=== PATIENT | male | born 1960 | race Caucasian/White ===

== ENCOUNTER 2016-08-13 18:38 | Inpatient (IN) | payer OTHER ==
[~2016-08-13] VITALS: Ht 172.7 cm; Wt 145.1 kg
[~2016-08-13 18:38] MED LIST: ALLEGRA 180MG180 MG PO; BACTRIM DS 8001 TAB PO; BACTROBAN 22GM22 GM TP; CLEOCIN PO; COLACE 100100 MG/CAP PO; EXALGO16 MG PO; FLEXERIL10 MG PO; GABAPENTIN; GLUCOPHAGE500 MG/TAB PO; IRON65 MG PO; KADIAN50 MG PO; LAMISIL250 MG PO; LASIX 20MG TABL20 MG PO; LISINOPRIL; LORTAB 5/500 501 TAB; MORPHINE 1515 MG/TAB PO; MOTRIN 800800 MG/TAB PO; MS CONTIN30 MG PO; MUCINEX1200 MG PO; MULTIPLE VITAMI1 TAB PO; MVI; NAPROSYN500 MG PO; NATURAL IRON65 MG PO; NEURONTIN300 MG/CAP PO; NEURONTIN600 MG/TAB PO; ONGLYZA5 MG PO; PERCOCET 325 MG1 TAB PO; PERCOCET 650 MG1 TAB PO; PRILOSEC 20MG20 MG PO; PRINIVIL40 MG PO; SYNTHROID0.1 MG/TAB PO; TESSALON PERLE200 MG PO; TRAMADOL; ZOCOR 20MG20 MG PO; ZOCOR5 MG; [UNRECOGNIZED DRUG - OTHER]
[2016-08-13 20:26] VITALS: BP 180/90; PULSE 112; TEMP 98.5
[2016-08-14 16:50] VITALS: BP 160/85; PULSE 114; TEMP 98.3
[2016-08-14 17:24] VITALS: BP 160/85; PULSE 114; TEMP 97.3
[2016-08-15 06:45] VITALS: BP 176/91; PULSE 97; TEMP 96.9
[2016-08-15 16:34] VITALS: BP 159/94; PULSE 111; TEMP 96.5
[2016-08-16 05:04] VITALS: BP 154/81; PULSE 91; TEMP 97.8
[2016-08-16 16:29] VITALS: BP 144/77; PULSE 103; TEMP 97.6
[2016-08-17 05:06] VITALS: BP 171/80; PULSE 103; PULSE 13; TEMP 98.2
[2016-08-17 16:59] VITALS: BP 140/54; PULSE 103; TEMP 97.2
[2016-08-18 04:12] VITALS: BP 140/58; PULSE 90; TEMP 97.7
[2016-08-18 16:10] VITALS: BP 137/71; PULSE 100; TEMP 97.2
[2016-08-19 03:35] VITALS: BP 152/80; PULSE 97; TEMP 98
[2016-08-19 16:04] VITALS: BP 130/75; PULSE 95; TEMP 97.1
[2016-08-20 05:50] VITALS: BP 150/77; PULSE 91; TEMP 97.7
[2016-08-20 16:27] VITALS: BP 121/65; PULSE 103; TEMP 96.9
[2016-08-21 05:47] VITALS: BP 153/78; PULSE 92; TEMP 96.8
[2016-08-21 16:13] VITALS: BP 143/76; PULSE 94; TEMP 96.8
[2016-08-22 06:30] VITALS: BP 141/74; PULSE 92; TEMP 98.2
[2016-08-22 15:47] VITALS: BP 137/77; PULSE 93; TEMP 98.5
[2016-08-23 06:30] VITALS: BP 152/77; PULSE 102; PULSE 12; TEMP 97.6
[2016-08-23] MEDS ORDERED: NEURONTIN600 MG/TAB PO (12:23)
[2016-08-23] MEDS ORDERED: PERCOCET 325 MG1 TAB PO (12:24)
[2016-08-23] MEDS ORDERED: EXALGO32 PO (13:53)
[2016-08-23] MEDS ORDERED: TRULICITY1.5 MG/0.5 SQ (13:53)
[2016-08-23] MEDS ORDERED: GLUCOPHAGE500 MG/TAB PO (13:54)
== END 2016-08-23 14:54 | disposition home health service (06) | DRG 948 ==
DX: R53.81 Other malaise (principal); Z68.42 Body mass index [BMI] 45.0-49.9, adult; M51.37 Other intervertebral disc degeneration, lumbosacral region; I10 Essential (primary) hypertension; E11.9 Type 2 diabetes mellitus without complications; E66.9 Obesity, unspecified
CPT/HCPCS: 99222-AI; 99232-AI; 99239; J1650; J1815

== ENCOUNTER → 2017-11-07 | Outpatient (CLI) | payer OTHER ==
[~2017-11-07] MED LIST changes: +EXALGO32 PO; +TRULICITY1.5 MG/0.5 SQ
== END ==
LOC: SUN.DIA 10:00
DX: E11.9 Type 2 diabetes mellitus without complications (principal); E78.5 Hyperlipidemia, unspecified; E11.40 Type 2 diabetes mellitus with diabetic neuropathy, unspecified; E66.9 Obesity, unspecified; Z68.42 Body mass index [BMI] 45.0-49.9, adult; Z71.3 Dietary counseling and surveillance
CPT/HCPCS: G0108

== ENCOUNTER → 2017-12-14 | Outpatient (CLI) | payer OTHER | LOC: SUN.DIA 11-30 16:11 | DX: E11.40 Type 2 diabetes mellitus with diabetic neuropathy, unspecified (principal); E78.5 Hyperlipidemia, unspecified; E66.9 Obesity, unspecified | CPT/HCPCS: G0108 ==

== ENCOUNTER → 2018-02-01 | Outpatient (CLI) | payer OTHER | LOC: SUN.DIA 14:37 | DX: E11.40 Type 2 diabetes mellitus with diabetic neuropathy, unspecified (principal); E78.5 Hyperlipidemia, unspecified; E66.9 Obesity, unspecified | CPT/HCPCS: G0108 ==

== ENCOUNTER 2019-04-13 06:27 | Day surgery (SDC) | payer OTHER ==
[~2019-04-13] VITALS: Ht 167.6 cm; Wt 140.9 kg
[2019-04-13] VITALS (7 sets, daily range): BP systolic 135–149; BP diastolic 82–92; PULSE 77–98; TEMP 97–97.7
[~2019-04-13 06:27] MED LIST changes: +BASAGLAR K100 UNIT/1 SQ; +HYGROTON 2525 MG/TAB PO; +MULTIPLE VITAMI1 TA5 PO; -MULTIPLE VITAMI1 TAB PO; +NORVASC 10MG10 MG PO
[2019-04-13] MEDS ORDERED: CBD OIL (07:31)
--- NOTE | 2019-04-13 11:03 | NUR ---
PT RETURNED FROM ENDO PROCEDURE ROOM INTO BAY# 5. PT ALERT AND ORIENTATED. LUNGS CLEAR, HRR, BOWEL SOUNDS PRESENT. IV PATENT TO RIGHT HAND. PT DENIES PAIN OR NAUSEA AT THIS TIME. REQUESTS GRAPE JUICE AND CHOCOLATE PUDDING. CALL LIGHT IN REACH, WILL CONT TO MONITOR PROGRESS.
--- NOTE | 2019-04-13 11:09 | NUR ---
PT TOLERATING FOOD AND FLUIDS, CALLED FOR RIDE HOME. DENIES PAIN OR DISCOMFORT, DENIES NAUSEA. DRIFTS ON AND OFF TO SLEEP, WILL CONT TO MONITOR, CALL LIGHT IN REACH.
--- NOTE | 2019-04-13 11:12 | NUR ---
IV REMOVED FROM RIGHT HAND WITHOUT DIFFICULTY, DISCHARGE INSTRUCTIONS GIVEN, PT VOICES UNDERSTANDING. WAITONG FOR SON-IN-LAW TO ARRIVE.
--- NOTE | 2019-04-13 11:14 | NUR ---
PT ALERT AND ORINTATED, DENIES PAIN OR NAUSEA. BELONGINGS GATHERED AND PT WAS TAKEN TO PATIENT ENTRANCE TO MEET HIS SON-IN-LAW FOR A RIDE HOME. PT DENIES QUESTIONS. PT DISCHARGED INTO SON-IN-LAW'S CAR. SON-IN-LAW DRIVING.
== END 2019-04-13 10:00 | disposition home or self-care (01) ==
LOC: SDCO 06:27
DX: K31.7 Polyp of stomach and duodenum (principal); K21.9 Gastro-esophageal reflux disease without esophagitis; K44.9 Diaphragmatic hernia without obstruction or gangrene; I10 Essential (primary) hypertension; E78.00 Pure hypercholesterolemia, unspecified; G89.29 Other chronic pain; M54.9 Dorsalgia, unspecified; M46.96 Unspecified inflammatory spondylopathy, lumbar region; E03.9 Hypothyroidism, unspecified; E11.42 Type 2 diabetes mellitus with diabetic polyneuropathy; E66.01 Morbid (severe) obesity due to excess calories; Z68.43 Body mass index [BMI] 50.0-59.9, adult; Z79.4 Long term (current) use of insulin; Z79.84 Long term (current) use of oral hypoglycemic drugs; Z87.891 Personal history of nicotine dependence; Z88.1 Allergy status to other antibiotic agents; Z88.8 Allergy status to other drugs, medicaments and biological substances
CPT/HCPCS: J2250; J2405; J3010

== ENCOUNTER 2019-04-19 11:18 | Inpatient (IN) | payer OTHER ==
[~2019-04-19] VITALS: Ht 167.6 cm; Wt 142.5 kg
[~2019-04-19 11:18] MED LIST changes: +CBD OIL
[2019-05-09] VITALS (339 sets, daily range): BP systolic 135–174; BP diastolic 70–104; PULSE 89–109; TEMP 97.6–99.2; O2SAT 90–97
[2019-05-09] MEDS ORDERED: NEURONTIN800 MG/TAB PO (07:37)
--- NOTE | 2019-05-09 13:17 | NUR ---
Arrives to ICU 6 via bed from PACU with RN x2. Awakens to name called. Dressings to abd x5, CDI. CHIDI and garcía cath in place. Call light in hand. Denies needs.
--- NOTE | 2019-05-09 17:46 | NUR ---
Dr. Rodriguez notified of BP trend since admit. PRN orders recieved.
--- NOTE | 2019-05-09 19:50 | NUR ---
Assessment complete; patient resting in bed; mildly drowsy but arouses easily and responds appropriately to questions. Complaining of upper dull abdominal pain. Reminded to use SALES AND MARKETING PROFESSIONAL when having pain. Also demonstrated splinting with a pillow as patient reported coughing increases pain. Reminded to deep breath at least ten times an hour while awake to help decrease risk of developing pneumonia.
[2019-05-10] VITALS (403 sets, daily range): BP systolic 127–167; BP diastolic 66–91; PULSE 88–110; TEMP 97.9–99.4; O2SAT 94–100
--- NOTE | 2019-05-10 01:30 | NUR ---
Patient reporting abdominal pain similar to which he complained of earlier in the shift. Also reporting a headache. Reminded to use CREDIT AND LOAN COLLECTIONS SUPERVISOR button as needed. Assisted to reposition and boosted up in bed. Lap sites clean dry and intact, and bowel sounds audible in all quadrants. Will continue to monitor.
[2019-05-10 07:22] LABS: BASO % 0.2 % (0.0-2.0); EOS % 0.2 % (0-4.0); GRAN # 11.3 (1.4-6.5); GRAN % 82.6 % (42.2-75.2); HEMOGLOBIN 14.9 g/dl (13.5-18.0); LYMPH # 1.1 (1.2-3.4); LYMPH % 7.7 % (20.0-51.0); MEAN CELL VOLUME 87 fl (80.0-100.0); MEAN CORPUSCULAR HEMOGLOBIN 29 pg (27.0-31.0); MEAN CORPUSCULAR HGB CONC 34 g/dl (33.0-37.0); MEAN PLATELET VOLUME 10.3 fl (7.4-10.4); MONO # 1.2 (0.1-0.6); MONO % 8.9 % (1.7-9.3); PLATELET COUNT 223 K/mm3 (130-400); RED BLOOD COUNT 5.08 M/mm3 (4.20-5.60); REDCELL DISTRIBUTION WIDTH-CV 14.1 % (11.5-14.5)
[2019-05-10 07:24] LABS: CALCIUM 8.9 mg/dL (8.4-10.2); CREATININE, serum 0.57 (0.66-1.25)
[2019-05-10 07:30] LABS: POTASSIUM 2.9 mmol/L (3.4-5.0)
--- NOTE | 2019-05-10 07:30 | NUR ---
Report received from Quyen FONTANEZ and care resumed. Pt helped up to chair with assist of 1. Tolerated well. Will continue to follow.
--- NOTE | 2019-05-10 11:30 | NUR ---
Dr Rodriguez in to see pt at this time. Will plan to transfer to floor.
--- NOTE | 2019-05-10 14:21 | NUR ---
Report called to Brittanie FONTANEZ on surgical floor. Pt taken by wheelchair with chart and belongings on tele to room 321-2.
--- NOTE | 2019-05-10 21:00 | NUR ---
Shift assessment complete. Patient in bed, awake. Ambulated to BR with standby assist. Had BM. States pain 5/10, LOCKSTITCH MACHINE OPERATOR somewhat effective. No additional pain medication needed per pt. CHIDI drain emptied. Denies further needs at this time. Will continue to monitor.
[2019-05-11] VITALS (8 sets, daily range): BP systolic 107–147; BP diastolic 64–85; PULSE 88–109; TEMP 97.4–98.4
--- NOTE | 2019-05-11 05:30 | NUR ---
Patient in bed, sleeping. Wakens to name being called. States, pain 09/25. Self-administered PAPER CONSERVATOR dose. Specimen collected from CHIDI and sent to lab. VS stable. Denies further needs at this time. Will continue to monitor.
--- NOTE | 2019-05-11 09:30 | NUR ---
Patient alert and oriented, answers questions appropriately. See assessment. Abdomen soft, non tender, non distended. Bowel sounds active x4 quads. +Flatus. +Bowel movement. Lap sites to abdomen with edges well approximated, no redness or drainage noted. CHIDI to LLQ compressed, serosanguinous drainage noted. ENGINEERING SURVEYOR Dilaudid infusing in IV in left wrist. No c/o pain or discomfort.
[2019-05-11 09:36] LABS: BASO % 0.4 % (0.0-2.0); CALCIUM 8.9 mg/dL (8.4-10.2); CREATININE, serum 0.58 (0.66-1.25); EOS # 0.1 (0.0-0.7); EOS % 0.9 % (0-4.0); GRAN # 8.1 (1.4-6.5); GRAN % 76.1 % (42.2-75.2); HEMOGLOBIN 14.5 g/dl (13.5-18.0); LYMPH # 1.3 (1.2-3.4); LYMPH % 12.4 % (20.0-51.0); MEAN CELL VOLUME 88 fl (80.0-100.0); MEAN CORPUSCULAR HEMOGLOBIN 30 pg (27.0-31.0); MEAN CORPUSCULAR HGB CONC 34 g/dl (33.0-37.0); MEAN PLATELET VOLUME 9.9 fl (7.4-10.4); MONO % 9.6 % (1.7-9.3); PLATELET COUNT 213 K/mm3 (130-400); POTASSIUM 3.3 mmol/L (3.4-5.0); RED BLOOD COUNT 4.91 M/mm3 (4.20-5.60); REDCELL DISTRIBUTION WIDTH-CV 14.1 % (11.5-14.5)
--- NOTE | 2019-05-11 13:28 | NUR ---
Interior Design Project Manager met with patient to discuss discharge planning. Patient lives alone in a [place] A mobile home in [place]. Patient sees Dr. Barnard for primary care and obtains medications from [facility] pharmacy. Patient reports he has a neuro stimulator at home. Patient also reports independence with ADLS. Patient did not have DPOA-HC set up but was interested in doing so at this time. SW assisted patient in completing the form. Patient designates his daughters, Elijah and Annmarie. ELAINE and RNBrittanie provided witness signature. SW provided original and copies to patient then placed a copy in chart. Patient plans to return home upon discharge. SW to continue to follow as needed.
--- NOTE | 2019-05-12 02:06 | NUR ---
Patient doing well tonight. c/o moderate back pain, and states he is having very little abd pain. laps x5 cdi and open to air. llq karen drain cdi and open to air, draining bloody drainage. both iv to L arm flushed and patent. has not needed insulin tonight, took other scheduled medications without issue. ambulated in halls x2 independently. no further needs at this time. will continue to monitor.
[2019-05-12 03:54] VITALS: BP 128/73; PULSE 80; TEMP 97.5
[2019-05-12 07:53] VITALS: BP 99/66; PULSE 103; TEMP 97.4
--- NOTE | 2019-05-12 08:00 | NUR ---
Patient resting in bed eating breakfast at this time. Patient is alert and oriented, answers questions appropriately. Patient denies pain at this time, does request set up assistance with showering after breakfast, instructed patient to inform staff when he was ready. Patient denies further needs at this time, call light within reach.
[2019-05-12 09:31] LABS: BASO # 0.1 (0.0-0.2); BASO % 0.5 % (0.0-2.0); EOS # 0.3 (0.0-0.7); EOS % 2.4 % (0-4.0); GRAN # 7.8 (1.4-6.5); GRAN % 75.1 % (42.2-75.2); HEMATOCRIT 42.4 % (42.0-52.0); LYMPH # 1.4 (1.2-3.4); LYMPH % 13.8 % (20.0-51.0); MEAN CELL VOLUME 88 fl (80.0-100.0); MEAN CORPUSCULAR HEMOGLOBIN 29 pg (27.0-31.0); MEAN CORPUSCULAR HGB CONC 33 g/dl (33.0-37.0); MEAN PLATELET VOLUME 10.4 fl (7.4-10.4); MONO # 0.8 (0.1-0.6); MONO % 7.7 % (1.7-9.3); PLATELET COUNT 215 K/mm3 (130-400); RED BLOOD COUNT 4.81 M/mm3 (4.20-5.60); REDCELL DISTRIBUTION WIDTH-CV 13.9 % (11.5-14.5)
[2019-05-12 09:44] LABS: CALCIUM 9.1 mg/dL (8.4-10.2); CREATININE, serum 0.69 (0.66-1.25); POTASSIUM 3.4 mmol/L (3.4-5.0)
--- NOTE | 2019-05-12 11:45 | NUR ---
Discharge teaching completed. Discussed discharge instructions and the importance of making and keeping follow up appointments. INT removed, catheter intact, hemostasis achieved. Patient denies questions or concerns at this time, patient escorted to visitor entrance, where he entered a private vehicle.
== END 2019-05-12 11:45 | disposition home or self-care (01) | DRG 621 ==
LOC: INPTSU 05-09 06:37 → SURG 05-09 10:15 → ICU 05-09 13:31 → SURG 05-10 14:39
PROVIDERS: ADMIT Surgery
PROC: 8E0W4CZ Robotic Assisted Procedure of Trunk Region, Percutaneous Endoscopic Approach (ICD-10-PCS; 2019-05-09)
PROC: 0D164ZA Bypass Stomach to Jejunum, Percutaneous Endoscopic Approach (ICD-10-PCS; principal; 2019-05-09 10:15)
DX: E66.01 Morbid (severe) obesity due to excess calories (principal); Z68.43 Body mass index [BMI] 50.0-59.9, adult; G89.29 Other chronic pain; K31.7 Polyp of stomach and duodenum; K21.9 Gastro-esophageal reflux disease without esophagitis; I10 Essential (primary) hypertension; E78.00 Pure hypercholesterolemia, unspecified; E11.42 Type 2 diabetes mellitus with diabetic polyneuropathy; M54.9 Dorsalgia, unspecified; E03.9 Hypothyroidism, unspecified; Z90.49 Acquired absence of other specified parts of digestive tract; Z79.4 Long term (current) use of insulin; Z79.891 Long term (current) use of opiate analgesic; Z87.891 Personal history of nicotine dependence; Z88.1 Allergy status to other antibiotic agents; Z88.8 Allergy status to other drugs, medicaments and biological substances
CPT/HCPCS: A4314; C9113; J0330; J0360; J0690; J1100; J1170; J1650; J1815; J2405; J2704; J3010; J3480; J7030

== ENCOUNTER → 2019-10-08 | Outpatient (CLI) | payer OTHER ==
[~2019-10-08] VITALS: Ht 167.6 cm; Wt 114.5 kg
[~2019-10-08] MED LIST changes: +NEURONTIN800 MG/TAB PO
[2019-10-08 16:25] VITALS: BP 136/60; PULSE 104
== END ==
LOC: LIGHT 13:34
DX: E66.8 Other obesity (principal); Z68.41 Body mass index [BMI] 40.0-44.9, adult; Z98.84 Bariatric surgery status; E11.9 Type 2 diabetes mellitus without complications; Z79.4 Long term (current) use of insulin
CPT/HCPCS: G0463

== ENCOUNTER 2021-03-11 12:59 | Observation (INO) | payer BC ==
[~2021-03-11] VITALS: Ht 167.6 cm; Wt 103.3 kg
--- NOTE | 2021-03-11 13:24 | NUR ---
Patient to room 330 from the office. Ambulated to the room. A&Ox4. VSS. Nurse oriented the patient to location, room, and call light. Reports pain in back. No further needs expressed. Call light within reach
[2021-03-11 13:26] VITALS: BP 135/73; PULSE 95; TEMP 98.4
[2021-03-11] MEDS ORDERED: JANUVIA 100MG100 MG PO (13:48)
[2021-03-11 14:40] LABS: BASO # 0.1 K/mm3 (0.0-0.2); BASO % 0.5 % (0.0-2.0); EOS # 0.1 K/mm3 (0.0-0.7); EOS % 0.7 % (0-4.0); GRAN # 7.6 K/mm3 (1.4-6.5); GRAN % 77.1 % (42.2-75.2); HEMATOCRIT 44.2 % (42.0-52.0); HEMOGLOBIN 15.8 g/dl (13.5-18.0); LYMPH # 0.9 K/mm3 (1.2-3.4); LYMPH % 8.8 % (20.0-51.0); MEAN CELL VOLUME 87 fl (80.0-100.0); MEAN CORPUSCULAR HEMOGLOBIN 31 pg (27.0-31.0); MEAN CORPUSCULAR HGB CONC 36 g/dl (33.0-37.0); MEAN PLATELET VOLUME 10.3 fl (7.4-10.4); MONO # 1.2 K/mm3 (0.1-0.6); MONO % 12.4 % (1.7-9.3); PLATELET COUNT 244 K/mm3 (130-400); RED BLOOD COUNT 5.11 M/mm3 (4.20-5.60); REDCELL DISTRIBUTION WIDTH-CV 12.3 % (11.5-14.5)
[2021-03-11 15:02] LABS: ALBUMIN 3.4 gm/dL (3.4-4.8); BILIRUBIN,TOTAL 0.8 mg/dL (0.2-1.2); CALCIUM 9.5 mg/dL (8.4-10.2); CREATININE, serum 0.77 mg/dL (0.72-1.25)
[2021-03-11 15:04] LABS: POTASSIUM 2.5 mmol/L (3.5-4.5)
[2021-03-11 15:42] VITALS: BP 128/64; PULSE 91; TEMP 99
--- NOTE | 2021-03-11 16:00 | NUR ---
Patient back to room 330 from the OR. Procedure was canceled. VSS. IV CDI, fluids by gravity. Denies pain and discomfort. No further needs expressed from the patient. Call light within reach
--- NOTE | 2021-03-11 17:53 | NUR ---
Patient laying in bed watching TV. A&Ox4. VSS. IV CDI, fluids infusing. Complaints of pain in IV site r/t potassium infusing. Nurse informed the patient that potassium can burn and irritate the vein, running concurrently with NS. Denies abdominal pain. Telemetry on chest. Patient will be NPO after midnight and patient aware. No further needs expressed. Call light within reach
--- NOTE | 2021-03-11 17:56 | NUR ---
Patient has had complaints of nausea throughout the shift. Did vommit green emesis in the am, no other reports of emesis. Nausea medication given when requested. A&Ox3. VSS, BP hypertensive, doctor aware. Prior IV site infiltrated, new IV site started. Nurse encouraging PO intake with medication and to help with nausea. Daughter assisting with ordering dinner. Patient has been resting in bed most of the shift and reports being weak. No further needs expressed. Call light within reach
[2021-03-11 19:42] VITALS: BP 117/70; PULSE 88; TEMP 97.9
--- NOTE | 2021-03-11 20:00 | NUR ---
PT RESTING IN BED. HAVING CHRONIC BACK PAIN. SEE MAR FOR PAIN MED GIVEN. HAVE NEUROSTIMULATOR ALSO. K+ PROTOCOL CONTINUES. LT HAND IV SITE ALITTLE PAINFUL WITH POTASSIUM INFUSION. SITE CLEAR. NS INFUSING AT 75CC/HR.
--- NOTE | 2021-03-11 21:07 | NUR ---
NOTIFIED DR PAUL FOR IVF ORDER. SEE ORDER.
[2021-03-12] VITALS (7 sets, daily range): BP systolic 125–156; BP diastolic 65–86; PULSE 74–85; TEMP 97.9–98.6
[2021-03-12 03:14] LABS: HEMATOCRIT 43.4 % (42.0-52.0); HEMOGLOBIN 15.1 g/dl (13.5-18.0); MEAN CELL VOLUME 89 fl (80.0-100.0); MEAN CORPUSCULAR HEMOGLOBIN 31 pg (27.0-31.0); MEAN CORPUSCULAR HGB CONC 35 g/dl (33.0-37.0); MEAN PLATELET VOLUME 10.1 fl (7.4-10.4); PLATELET COUNT 221 K/mm3 (130-400); REDCELL DISTRIBUTION WIDTH-CV 12.4 % (11.5-14.5)
[2021-03-12 03:22] LABS: INR 1.2 (0.8-3.0); PROTHROMBIN TIME 13.8 SECONDS (9.7-12.8)
[2021-03-12 03:32] LABS: ALBUMIN 3.2 gm/dL (3.4-4.8); BILIRUBIN,TOTAL 0.7 mg/dL (0.2-1.2); CALCIUM 9.1 mg/dL (8.4-10.2); CREATININE, serum 0.7 mg/dL (0.72-1.25); TOTAL PROTEIN 6.6 gm/dL (6.2-8.1)
[2021-03-12 03:37] LABS: POTASSIUM 2.9 mmol/L (3.5-4.5)
--- NOTE | 2021-03-12 03:46 | NUR ---
DR PAUL NOTIFIED OF CURRENT K+ LEVEL. SEE ORDERS.
--- NOTE | 2021-03-12 04:20 | NUR ---
#1 BAG K+ 10mEQ IV STARTED PER PROTOCOL.
--- NOTE | 2021-03-12 05:39 | NUR ---
HAS BEEN NPO EXCEPT FOR SMALL SIPS WITH PERCOCET AND AUGMENTIN.
--- NOTE | 2021-03-12 05:39 | NUR ---
#2 BAG K+ 10MEQ INFUSING IV PER PROTOCOL.
--- NOTE | 2021-03-12 06:30 | NUR ---
#3 K+ IV BAG INFUSING PER PROTOCOL. PT RESTING.
--- NOTE | 2021-03-12 07:24 | NUR ---
REPORT RECEIVED FROM DEMETRICE FONTANEZ AT THIS TIME. PT CURRENLY RESTING IN BED POTTASSIUN INFUSING
--- NOTE | 2021-03-12 19:23 | NUR ---
PT UP TO BATHROOM, VOICES PAIN TO BACK, CHRONIC. WANTS PAIN MEDS. PERCOCET GIVEN, PT WILL NOT BE GOING TO THE OR TONIGHT. CLEAR LIQUIDS PROVIDED.
--- NOTE | 2021-03-12 20:17 | NUR ---
PT STILL HAVING PAIN. DILAUDID 0.5MG IVP GIVEN.
--- NOTE | 2021-03-12 21:10 | NUR ---
DR PAUL HERE, NEW ORDERS FOR PERCOCET 7.5MG 1-2 TABS GIVEN. ALSO OKAYED PT TO HAVE LOW FAT DIET TONIGHT, NPO AFTER MIDNIGHT. SANDWICH GIVEN.
--- NOTE | 2021-03-12 22:00 | NUR ---
PT DISCUSSING WHEN HE CAN HAVE NEXT PAIN MEDS, FOR HIS BACK. EDUCATED ON FREQUENCY AND NEXT AVAILABLE DOSE.
--- NOTE | 2021-03-12 22:37 | NUR ---
DILAUDID 0.5MG IVP GIVEN FOR BACK PAIN.
--- NOTE | 2021-03-12 23:54 | NUR ---
MEDICATED WITH PERCOCET 7.5MG/325 2 TABS PO FOR CHRONIC BACK PAIN.
[2021-03-13] VITALS (15 sets, daily range): BP systolic 118–162; BP diastolic 52–85; PULSE 59–89; TEMP 97.3–98.3
--- NOTE | 2021-03-13 03:40 | NUR ---
MEDICATED WITH DILAUDID 0.5MG IVP FOR BACK PAIN. HAS BEEN NPO SINCE MIDNIGHT FOR SURGERY TODAY.
--- NOTE | 2021-03-13 06:40 | NUR ---
MEDICATED WITH DILAUDID 0.5MG IVP FOR BACK PAIN.
[2021-03-13 07:05] LABS: HEMATOCRIT 43.5 % (42.0-52.0); HEMOGLOBIN 15.1 g/dl (13.5-18.0); MEAN CELL VOLUME 90 fl (80.0-100.0); MEAN CORPUSCULAR HEMOGLOBIN 31 pg (27.0-31.0); MEAN CORPUSCULAR HGB CONC 35 g/dl (33.0-37.0); MEAN PLATELET VOLUME 10.7 fl (7.4-10.4); PLATELET COUNT 232 K/mm3 (130-400); RED BLOOD COUNT 4.86 M/mm3 (4.20-5.60); REDCELL DISTRIBUTION WIDTH-CV 12.3 % (11.5-14.5)
[2021-03-13 07:10] LABS: ALBUMIN 3.1 gm/dL (3.4-4.8); BILIRUBIN,TOTAL 0.5 mg/dL (0.2-1.2); CALCIUM 8.6 mg/dL (8.4-10.2); CREATININE, serum 0.68 mg/dL (0.72-1.25); POTASSIUM 3.2 mmol/L (3.5-4.5); TOTAL PROTEIN 6.4 gm/dL (6.2-8.1)
[2021-03-13 08:21] LABS: BAND 5 % (0-10); EOSINOPHIL 1 % (0-4); LYMPHOCYTE 24 % (20.0-51.0); NEUTROPHILS 61 % (42.0-75.2); PLATELET ESTIMATE NORMAL (NORMAL)
--- NOTE | 2021-03-13 10:56 | NUR ---
Unable to meet with patient due to him being in surgery. Patient's daughter Annmarie contacted to receive information from. Patient lives at home in [place]. Patient's two daughters live in [place] as well. PCP is Dr. Barnard and he utilizes [facility] for medications. Patient is independent with his activities of daily living and does not utilize any medical equipment to assist with mobility. Met with patient post surgery. Patient states he is planning on returning home post dc. Patient reports that his car is here and was going to drive himself home once medically stable. Dr. Cochran notified of this as well as patient's RN.
--- NOTE | 2021-03-13 10:58 | NUR ---
PT BACK FROM SURGERY, CURRENTLY SLEEPY BUT AROSEABLE, VS OBTAINED SURGICAN INCISION C/D/I WITH DERMABOND
[2021-03-13] MEDS ORDERED: PERCOCET 325 MG1 TAB PO (11:11)
--- NOTE | 2021-03-13 19:04 | NUR ---
PT REPORT NAUSEA WITH NO VOMITING.UBALE TO EAT ANYTHING ZOFRAN AND DILAUDID GIVEN WITH SLIGHT RELIEF.PT WALK APPROX 50 FEET WITH THIS NURSE. dR Nogueira CALLED AND NOFIFY ORDERS RECIEVED TO HOLD D/C FOR HAFSA PT MADE AWARE.
[2021-03-14 00:04] VITALS: BP 158/76; PULSE 82; TEMP 98.1
--- NOTE | 2021-03-14 00:36 | NUR ---
ALERT AND OX4.DENIES SOA, CHEST PAIN OR DIZZY. REPORTS NAUSEA AND POOR APPEITE. IV FLUIDS CONTINUED. BLOOD SUGAR OBTAINED PER ORDER. PAIN MEDS GIVEN PRN. INC TO ABD LAP X 5 GLUED AND INTACT, NO REDNESS OR SWELLING. POC DISCUSSED. CALL LIGHT WI REACH.
--- NOTE | 2021-03-14 04:24 | NUR ---
IV INFILTRATED AFTER BAG OF NS INFUSED. PT DENIES NAUSEA, BUT RATES PAIN9/10. REFUSED ANOTHER IV STATES HE IS A HARD STICK AND ANTCIPATES DC TODAY. DILUDID WAS GOING TO BE GIVEN UNTIL PUSHED AND NOTICES INFILTATE/PAIN REPORTED. TYRING PO PERCOCET INSTEAD. WILL NOTIFY NURSE IF WANTS TO ALLOW NEW IV SITE IF NOT CONTROLLED W ORAL ALONE.
[2021-03-14 04:37] VITALS: BP 163/83; PULSE 85; TEMP 97.7
--- NOTE | 2021-03-14 07:18 | NUR ---
CRITICAL POTASSIUM CALED TO DR RIOS AT THIS TIME, ORDERS RECIEVED TO CONSULT HOSPITALIST
--- NOTE | 2021-03-14 07:28 | NUR ---
AND NOTIFY OF THE CONASULT ORDERS RECIEVD FOR POTASSIUM REPLACEMNT
[2021-03-14 08:10] VITALS: BP 157/87; PULSE 86; PULSE 89; TEMP 97.5
[2021-03-14 11:49] VITALS: BP 144/70; PULSE 84; TEMP 97.4
[2021-03-14 13:09] LABS: CALCIUM 9.2 mg/dL (8.4-10.2); CREATININE, serum 0.65 mg/dL (0.72-1.25); PHOSPHOROUS 1.5 mg/dL (2.3-4.7); POTASSIUM 3.4 mmol/L (3.5-4.5)
[2021-03-14] MEDS ORDERED: PRINIVIL10 MG PO (14:42)
[2021-03-14] MEDS ORDERED: K-DUR20 MEQ PO (14:42)
[2021-03-14 15:30] VITALS: BP 135/83; PULSE 92; TEMP 98
[2021-03-14 20:15] VITALS: BP 108/62; PULSE 80; TEMP 97.6
--- NOTE | 2021-03-14 21:20 | NUR ---
IV infusion complete, IV dc'd, pt up to shower ad mar, abd incisions CDI, discharge instructions given, questions answered. pt ambulated to front exit with RN and belongings. Pt is alert and oriented, driving self home.
== END 2021-03-14 21:20 | disposition home or self-care (01) ==
LOC: SDCO 12:59 → SURG 12:59 → SDCO 13:00 → SURG 13:00 → SDCO 03-13 07:12 → SURG 03-13 07:15
PROVIDERS: Internal Medicine; ADMIT Surgery
DX: K80.10 Calculus of gallbladder with chronic cholecystitis without obstruction (principal); I10 Essential (primary) hypertension; J45.909 Unspecified asthma, uncomplicated; K21.9 Gastro-esophageal reflux disease without esophagitis; M54.9 Dorsalgia, unspecified; G89.29 Other chronic pain; G62.9 Polyneuropathy, unspecified; E11.9 Type 2 diabetes mellitus without complications; E78.5 Hyperlipidemia, unspecified; E03.9 Hypothyroidism, unspecified; E78.00 Pure hypercholesterolemia, unspecified; E66.9 Obesity, unspecified; E11.40 Type 2 diabetes mellitus with diabetic neuropathy, unspecified; Z87.891 Personal history of nicotine dependence; Z79.84 Long term (current) use of oral hypoglycemic drugs; Z79.890 Hormone replacement therapy; Z90.89 Acquired absence of other organs; Z98.84 Bariatric surgery status; Z79.899 Other long term (current) drug therapy; Z79.4 Long term (current) use of insulin; Z83.3 Family history of diabetes mellitus; Z80.51 Family history of malignant neoplasm of kidney
CPT/HCPCS: OP; 99222; G0378; G0379; J0690; J1170; J1815; J2405; J2550; J2704; J3010; J3475; J3480; J7030; J7050

== ENCOUNTER 2023-07-04 13:38 | Emergency (ER) | payer BC ==
[~2023-07-04] VITALS: Ht 167.6 cm; Wt 81.8 kg
[~2023-07-04 13:38] MED LIST changes: +JANUVIA 100MG100 MG PO; +K-DUR20 MEQ PO; +PRINIVIL10 MG PO
[2023-07-04 13:52] VITALS: TEMP 97.7
[2023-07-04] MEDS ORDERED: NS 1,000 ML IV ONE (14:45)
[2023-07-04] MEDS ORDERED: Ketorolac 15 MG/ML VIAL IV ONE (14:45)
[2023-07-04] MEDS ORDERED: Mag/Al Hydrox/Simeth Susp 30 ML CUP PO ONE (14:45)
[2023-07-04 14:51] LABS: BASO # 0.1 K/mm3 (0.0-0.2); BASO % 0.6 % (0.0-2.0); EOS # 0.2 K/mm3 (0.0-0.7); EOS % 2.1 % (0.0-4.0); GRAN # 6.1 K/mm3 (1.4-6.5); GRAN % 65.2 % (42.2-75.2); HEMATOCRIT 44.8 % (42.0-52.0); HEMOGLOBIN 15.5 g/dl (13.5-18.0); LYMPH % 21.4 % (20.0-51.0); MEAN CELL VOLUME 93 fl (80.0-100.0); MEAN CORPUSCULAR HEMOGLOBIN 32 pg (27-31); MEAN CORPUSCULAR HGB CONC 35 g/dl (33.0-37.0); MEAN PLATELET VOLUME 9.9 fl (7.4-10.4); MONO # 0.9 K/mm3 (0.1-0.6); PLATELET COUNT 306 K/mm3 (130-400); RED BLOOD COUNT 4.83 M/mm3 (4.20-5.60); REDCELL DISTRIBUTION WIDTH-CV 12.9 % (11.5-14.5)
[2023-07-04 16:06] LABS: ALBUMIN 3.4 gm/dL (3.4-4.8); BILIRUBIN,TOTAL 0.5 mg/dL (0.2-1.2); CALCIUM 9.1 mg/dL (8.4-10.2); CREATININE, serum 1.11 mg/dL (0.72-1.25); MAGNESIUM 1.7 mg/dL (1.6-2.6); POTASSIUM 3.4 mmol/L (3.5-4.5); TOTAL PROTEIN 6.1 gm/dL (6.2-8.1)
[2023-07-04 16:11] LABS: TROPONIN-I 0.011 ng/mL (0.00-0.033)
[2023-07-04] MEDS ORDERED: Iohexol 300 - 100 ML VIAL IV ONE (16:20)
[2023-07-04] MEDS ORDERED: NS 100 ML IV SCH (16:21)
[2023-07-04] MEDS ORDERED: Magnes Hydrox (MOM) 80 MG/ML 30 ML CUP PO SCH (16:44)
[2023-07-04 16:57] LABS: COLLECTION METHOD CLEAN CATCH
[2023-07-04 17:05] LABS: PH 5.5 (5.0-8.5); URINE APPEARANCE CLEAR (CLEAR/HAZY); URINE BLOOD TRACE (NEGATIVE); URINE COLOR YELLOW (YELLOW); URINE GLUCOSE NEGATIVE (NEGATIVE); URINE KETONE NEGATIVE (NEGATIVE); URINE NITRATE NEGATIVE (NEGATIVE); URINE PROTEIN(semi-quant) NEGATIVE (NEGATIVE); URINE UROBILINOGEN 0.2 E.U/dL (0.2-1.0)
[2023-07-04 17:26] VITALS: BP 137/84; PULSE 66
[2023-07-04] MEDS ORDERED: PEPCID40 MG PO (17:30)
[2023-07-04] MEDS ORDERED: ZOFRAN ODT4 MG PO (17:30)
== END 2023-07-04 17:44 | disposition home or self-care (01) ==
LOC: COL.ER 13:38
PROVIDERS: Internal Medicine
DX: A09 Infectious gastroenteritis and colitis, unspecified (principal); E87.6 Hypokalemia; E86.0 Dehydration; Z87.891 Personal history of nicotine dependence; Z87.442 Personal history of urinary calculi
CPT/HCPCS: J1885; J7030; Q9967